=== PATIENT | male | born 1975 | race Caucasian/White ===

== ENCOUNTER 2023-05-21 19:18 | Emergency (ER) | payer SELFPAY ==
[~2023-05-21] VITALS: Ht 175.3 cm; Wt 87.0 kg
[2023-05-21 19:30] VITALS: TEMP 97.8; O2SAT 97
[2023-05-21] MEDS ORDERED: IBUPROFEN 600MG TABLET PO STA (20:25)
[2023-05-21] MEDS ORDERED: IBUP-2029 MT (21:28)
[2023-05-21] MEDS ORDERED: CYCL10TA21 MT (21:28)
[2023-05-21 21:43] VITALS: BP 129/68; PULSE 69; RESP 16
== END 2023-05-21 22:00 | disposition home or self-care (01) ==
LOC: ER 19:18
DX: R51.9 Headache, unspecified (principal); R07.89 Other chest pain; M54.2 Cervicalgia; E11.9 Type 2 diabetes mellitus without complications; I95.9 Hypotension, unspecified
CPT/HCPCS: 71045; 93005; 99284